=== PATIENT | female | born 1930 | race Caucasian/White ===

== ENCOUNTER → 2016-11-08 | Outpatient (CLI) | payer MEDICARE, BC | END | disposition home or self-care (01) | LOC: CFH 10:18 | PROVIDERS: ATTEND Internal Medicine Cardiovascular Disease | DX: I50.22 Chronic systolic (congestive) heart failure (principal); I08.2 Rheumatic disorders of both aortic and tricuspid valves | CPT/HCPCS: 93306 ==

== ENCOUNTER 2018-11-14 21:26 | Inpatient (IN) | payer MEDICARE, BC ==
[~2018-11-14] VITALS: Ht 157.5 cm; Wt 61.2 kg
[2018-11-19 13:12] VITALS: BP 107/69
== END 2018-11-19 23:55 | disposition expired | DRG 871 ==
LOC: ED 23:08 → EDIP 11-15 00:56 → 4WST 11-15 03:09
PROVIDERS: ADMIT Family Medicine; ATTEND Family Medicine
PROC: 02HV33Z Insertion of Infusion Device into Superior Vena Cava, Percutaneous Approach (ICD-10-PCS; principal; 2018-11-18)
PROC: B548ZZA Ultrasonography of Superior Vena Cava, Guidance (ICD-10-PCS; 2018-11-18)
PROC: B5181ZA Fluoroscopy of Superior Vena Cava using Low Osmolar Contrast, Guidance (ICD-10-PCS; 2018-11-18)
DX: A41.9 Sepsis, unspecified organism (principal); J18.9 Pneumonia, unspecified organism; J96.01 Acute respiratory failure with hypoxia; N17.0 Acute kidney failure with tubular necrosis; G93.41 Metabolic encephalopathy; E43 Unspecified severe protein-calorie malnutrition; K63.1 Perforation of intestine (nontraumatic); E87.1 Hypo-osmolality and hyponatremia; N39.0 Urinary tract infection, site not specified; M62.82 Rhabdomyolysis; K92.2 Gastrointestinal hemorrhage, unspecified; I13.0 Hypertensive heart and chronic kidney disease with heart failure and stage 1 through stage 4 chronic kidney disease, or unspecified chronic kidney disease; E86.0 Dehydration; I27.20 Pulmonary hypertension, unspecified; E11.51 Type 2 diabetes mellitus with diabetic peripheral angiopathy without gangrene; E11.22 Type 2 diabetes mellitus with diabetic chronic kidney disease; R23.0 Cyanosis; E87.6 Hypokalemia; I48.0 Paroxysmal atrial fibrillation; R53.81 Other malaise; D64.9 Anemia, unspecified; K56.41 Fecal impaction; K66.8 Other specified disorders of peritoneum; N18.9 Chronic kidney disease, unspecified; W18.39XA Other fall on same level, initial encounter; M54.9 Dorsalgia, unspecified; M54.2 Cervicalgia; E11.65 Type 2 diabetes mellitus with hyperglycemia; E78.5 Hyperlipidemia, unspecified; H91.90 Unspecified hearing loss, unspecified ear; I50.9 Heart failure, unspecified; Z68.24 Body mass index [BMI] 24.0-24.9, adult; Z79.4 Long term (current) use of insulin; Z85.3 Personal history of malignant neoplasm of breast; Z90.710 Acquired absence of both cervix and uterus; Z90.11 Acquired absence of right breast and nipple; Y93.89 Activity, other specified; Y92.89 Other specified places as the place of occurrence of the external cause; Y99.8 Other external cause status
CPT/HCPCS: 36415; 36573; 51702; 70450; 71045; 71250; 72125; 72128; 72131; 74018; 74021; 74176; 74270; 80053; 80061; 81001; 82272; 82436; 82550; 82570; 82962; 83036; 83605; 83690; 83735; 83880; 84100; 84133; 84145; 84300; 84443; 84484; 85014; 85018; 85025; 85610; 85730; 87040; 87086; 87106; 93005; 93306; 93922; 93925; 96361; 96365; G0378; J0696; J2405; J2543; J7060; C1751; C9113; J1815; J2270; J7030; J7040; J7120